=== PATIENT | female | born 1990 ===

== ENCOUNTER 2018-05-28 15:44 | Emergency (ER) | payer MEDICAID, OTHER ==
[2018-05-28 15:54] VITALS: TEMP 98.3; O2SAT 97
--- NOTE | 2018-05-28 16:18 | ED PDOC ---
HPI: Dental Pain/Injury Time Seen by Provider: 05/28/18 16:08 Chief Complaint (Nursing): Dental Pain Chief Complaint (Provider): Left facial pain and swelling History Per: Patient History/Exam Limitations: no limitations Onset/Duration Of Symptoms: Days (x2) Current Symptoms Are (Timing): Still Present Additional Complaint(s): Sarah Driver, a 28 year old female with a past medical history of diabetes, presents to the ED complaining of left facial pain and swelling onset x2 days. She reports also having upper dental pain that is worse with eating and taking extra strength Tylenol yesterday with no relief. She denies fever or chills. PCP: Dr. Joshua Arora Past Medical History Reviewed: Historical Data, Nursing Documentation, Vital Signs Vital Signs: Last Vital Signs Temp 98.3 F 05/28/18 15:51 Pulse 110 H 05/28/18 15:51 Resp 16 05/28/18 15:51 BP 137/82 05/28/18 15:51 Pulse Ox 97 05/28/18 15:51 - Medical History PMH: Diabetes - Family History Family History: States: Unknown Family Hx - Home Medications Home Medications: Ambulatory Orders Medication Instructions Recorded Amoxicillin/Clavulanate [Augmentin 1 tab PO BID #20 tab 05/28/18 875 MG-125 MG] - Allergies Allergies/Adverse Reactions: Allergies Allergy/AdvReac Type Severity Reaction Status Date / Time No Known Allergies Allergy Verified 05/28/18 15:51 Review of Systems ROS Statement: Except As Marked, All Systems Reviewed And Found Negative Constitutional: Negative for: Fever, Chills ENT: Positive for: Mouth Swelling (left facial swelling) Musculoskeletal: Positive for: Other (left facial pain, left upper dental pain) Physical Exam - Reviewed Nursing Documentation Reviewed: Yes Vital Signs Reviewed: Yes - Physical Exam Appears: Positive for: Well, Non-toxic, No Acute Distress Head Exam: Positive for: ATRAUMATIC, NORMAL INSPECTION, NORMOCEPHALIC Skin: Positive for: Normal Color, Warm, DRY Eye Exam: Positive for: Normal appearance ENT: Positive for: Other (left facial tenderness and swelling with contusion of upper left dental) Neck: Positive for: Normal Cardiovascular/Chest: Negative for: Bradycardia Respiratory: Negative for: Respiratory Distress Gastrointestinal/Abdominal: Positive for: Normal Exam Back: Positive for: Normal Inspection Extremity: Positive for: Normal ROM Neurologic/Psych: Positive for: Alert, Oriented - ECG O2 Sat by Pulse Oximetry: 97 (RA) Pulse Ox Interpretation: Normal Medical Decision Making Medical Decision Making: Time: 1610 Initial Plan: --Tylenol 975 mg PO Upon provider evaluation patient is medically stable, and requires no further treatment in the ED at this time. Patient will be discharged home with Rx for antibiotics. Tylenol can be taken for pain relief. Counseling was provided and all questions were answered regarding diagnosis and need for follow up with dentist. There is agreement to discharge plan. Return if symptoms persist or w stacey. Scribe Attestation: Documented by Brady Underwood, acting as a scribe for Mellissa Hong PA-C Provider Scribe Attestation: All medical record entries made by the Scribe were at my direction and personally dictated by me. I have reviewed the chart and agree that the record accurately reflects my personal performance of the history, physical exam, medical decision making, and the department course for this patient. I have also personally directed, reviewed, and agree with the discharge instructions and disposition. Disposition - Clinical Impression Clinical Impression: Dental infection - Disposition Disposition: Routine/Home Disposition Time: 16:28 Condition: STABLE Additional Instructions: Please follow-up with dentist Prescriptions: Amoxicillin/Clavulanate [Augmentin 875 MG-125 MG] 1 tab PO BID #20 tab Instructions: Dental Pain (DC) Forms: [employer] (Amharic)
[2018-05-28 16:28] VITALS: BP 131/79; PULSE 98; RESP 17
== END 2018-05-28 16:31 | disposition home or self-care (01) ==
LOC: H.ER 15:44
DX: K04.7 Periapical abscess without sinus (principal); E11.9 Type 2 diabetes mellitus without complications